=== PATIENT | male | born 1930 | race Caucasian/White ===

== ENCOUNTER 2018-02-28 09:08 | Inpatient (IN) | payer OTHER ==
[~2018-02-28] VITALS: Ht 175.3 cm; Wt 69.9 kg
[2018-02-28 09:19] VITALS: BP 158/60
[2018-02-28 10:27] LABS: BASOPHIL % 0.3 % (0-2); PLATELET COUNT 292 x10^3mcL (130-400)
[2018-02-28 15:04] VITALS: BP 158/60
[2018-02-28] MEDS ORDERED: GOOD SENSE OMEP20 MG PO (15:04)
[2018-02-28] MEDS ORDERED: LEVOTHYROXIN0.075 M2 PO (15:04)
[2018-02-28] MEDS ORDERED: VITB12I INJ (15:06)
[2018-02-28] MEDS ORDERED: ZOLPIDEM TART12.5 M1 PO (15:07)
[2018-02-28] MEDS ORDERED: COLACE100 MG PO (15:07)
[2018-02-28] MEDS ORDERED: DEXILANT60 M1 PO (15:08)
[2018-02-28] MEDS ORDERED: COZAAR100 MG PO (15:08)
[2018-02-28] MEDS ORDERED: NOR5 PO (15:09)
[2018-02-28] MEDS ORDERED: PLA75 PO (15:10)
[2018-02-28] MEDS ORDERED: FENTANYL TR50 MCG/H1 TD (15:10)
[2018-02-28] MEDS ORDERED: FENTANYL TR25 MCG/H1 TD (15:10)
[2018-02-28] MEDS ORDERED: FERROUS SULFAT325 M2 PO (15:11)
[2018-02-28] MEDS ORDERED: LUMIGAN2.5 M1 OU (15:13)
[2018-02-28] MEDS ORDERED: NOR10T PO (15:14)
[2018-02-28] MEDS ORDERED: BISACODYL10 MG PR (15:15)
[2018-02-28] MEDS ORDERED: MILK OF MA400 MG/52 PO (15:15)
[2018-02-28] MEDS ORDERED: FLEET ENEMA135 ML PR (15:16)
== END 2018-02-28 17:05 | disposition hospice, home (50) | DRG 436 ==
LOC: MU 09:08
PROVIDERS: Family Medicine
PROC: 0W9G3ZZ Drainage of Peritoneal Cavity, Percutaneous Approach (ICD-10-PCS; principal; 2018-02-28)
DX: C25.9 Malignant neoplasm of pancreas, unspecified (principal); R18.8 Other ascites; I10 Essential (primary) hypertension; E11.9 Type 2 diabetes mellitus without complications; E03.9 Hypothyroidism, unspecified; Z51.5 Encounter for palliative care; Z66 Do not resuscitate
CPT/HCPCS: 49083; Q0092